=== PATIENT | female | born 1985 | race African-American/Black ===

== ENCOUNTER 2017-09-29 09:57 | Observation (INO) | payer MEDICAID ==
[~2017-09-29] VITALS: Ht 162.6 cm; Wt 85.7 kg
[~2017-09-29 09:57] MED LIST: CHLO25TA2 PO
[2017-09-29 11:07] LABS: CLARITY URINE CLEAR (CLEAR); COLOR URINE YELLOW (YELLOW); KETONES URINE TRACE (NEGATIVE); LEUKOCYTE ESTERASE URINE NEGATIVE (NEGATIVE); NITRITE URINE NEGATIVE (NEGATIVE); OCCULT BLOOD URINE NEGATIVE (NEGATIVE); PROTEIN URINE NEGATIVE (NEGATIVE); SPECIFIC GRAVITY URINE 1.026 (1.005-1.030); UROBILINOGEN URINE 0.2 E.U./dL (0.2-1.0)
[2017-09-29] MEDS ORDERED: PROG200C7 PO (12:01)
[2017-09-29] MEDS ORDERED: PNV1TABL76 PO (12:07)
== END 2017-09-29 12:15 | disposition home or self-care (01) ==
LOC: L&D 09:57
PROVIDERS: ADMIT Obstetrics & Gynecology; ATTEND Obstetrics & Gynecology
DX: O26.892 Other specified pregnancy related conditions, second trimester (principal); R10.30 Lower abdominal pain, unspecified; O26.872 Cervical shortening, second trimester; Z3A.22 22 weeks gestation of pregnancy
CPT/HCPCS: 81003; 99281; G0378